=== PATIENT | male | born 1970 | race African-American/Black ===

== ENCOUNTER 2021-10-28 22:33 | Emergency (ER) | payer OTHER ==
[2021-10-28 22:44] VITALS: BMI 29.1
[2021-10-28] MEDS ORDERED: ACETAMINOPHEN 1000 MG/100 ML BAG IVPB ONE (23:20)
[2021-10-28] MEDS ORDERED: ACETAMINOPHEN INJECTION 100 ML IVPB ONE (23:37)
[2021-10-29 00:20] LABS: BASO % 0.2 % (0-2.0); EOS % 2.5 % (0-4.5); HEMATOCRIT 40.8 % (35.4-49); HEMOGLOBIN 14.1 GM/dL (11.7-16.9); LYMPH % 56.1 % (8-40); MCH 30.1 pg (25.7-33.7); MCHC 34.7 g/dl (32.0-35.9); MEAN CELL VOLUME 86.7 fl (80-96); MEAN PLT VOLUME 7.5 fl (7.5-11.1); MONO % 11.3 % (3.8-10.2); NEUT % 29.9 % (42.8-82.8); PLATELET COUNT 164 10^3/uL (134-434); RDW 14.6 % (11.9-15.9); WHITE BLOOD COUNT 5.1 K/mm3 (4.0-10.0)
[2021-10-29] MEDS ORDERED: POTASSIUM CHLORIDE TABS 20 MEQ TABLET.ER (FP) PO ONE ×2 (00:30→02:34)
[2021-10-29 00:31] LABS: BLOOD UREA NITROGEN 12.2 mg/dL (7-18); CALCIUM 8.9 mg/dL (8.5-10.1)
[2021-10-29 00:32] LABS: ALBUMIN 3.9 g/dl (3.4-5.0)
[2021-10-29 00:35] LABS: CREATININE 1.4 mg/dL (0.55-1.3)
[2021-10-29 00:36] LABS: BILIRUBIN,TOTAL 0.8 mg/dL (0.2-1); TOT PROT 7.1 g/dl (6.4-8.2)
[2021-10-29 02:22] VITALS: BP 139/84; PULSE 52; RESP 20; TEMP 97.8
[2021-10-29] MEDS ORDERED: METOCLOPRAMIDE HCL INJECTION 10 MG/2 ML VIAL IVPB ONE (02:28)
[2021-10-29 02:29] LABS: PH,URINE 6.5 (5.0-8.0); URINE APPEARANCE CLEAR; URINE BILIRUBIN NEGATIVE (NEGATIVE); URINE COLOR YELLOW; URINE GLUCOSE (UA) NEGATIVE (NEGATIVE); URINE KETONE TRACE (NEGATIVE); URINE LEUK ESTERASE NEGATIVE (NEGATIVE); URINE NITRITE NEGATIVE (NEGATIVE); URINE PROTEIN NEGATIVE (NEGATIVE); URINE UROBILINOGEN 0.2 mg/dL (0.2-1.0)
[2021-10-29] MEDS ORDERED: METOCLOPRAMIDE HCL INJECTION 10 MG/2 ML VIAL ONE (02:35)
== END 2021-10-29 03:23 | disposition home or self-care (01) ==
LOC: JER 22:33
PROC: 3E033NZ Introduction of Analgesics, Hypnotics, Sedatives into Peripheral Vein, Percutaneous Approach (ICD-10-PCS; principal; 2021-10-28)
DX: R51.9 Headache, unspecified (principal); E87.6 Hypokalemia
CPT/HCPCS: 36415; 70450-TC; 71046-TC-FY; 80053; 81003; 84484; 85025; 87086; 93005; 93010; 96374; 99285-25

== ENCOUNTER 2022-08-09 11:05 | Emergency (ER) | payer OTHER ==
[2022-08-09 11:16] VITALS: BP 121/84; PULSE 67; RESP 20; TEMP 97.9; BMI 30.8
[2022-08-09] MEDS ORDERED: KETOROLAC TROMETHAMINE 30 MG/1 ML VIAL IVPUSH ONE (12:16)
[2022-08-09] MEDS ORDERED: SODIUM CHLORIDE 0.9% 500 ML INFUS.BAG IV ONE (12:16)
[2022-08-09] MEDS ORDERED: LIDOCAINE 5% TOPICAL PATCH TP ONE (12:17)
[2022-08-09] MEDS ORDERED: KETOROLAC TROMETHAMINE 30 MG/1 ML VIAL ONE (12:34)
[2022-08-09] MEDS ORDERED: LIDOCAINE 5% TOPICAL PATCH ONE (12:34)
[2022-08-09 13:43] LABS: HEMATOCRIT 42.4 % (35.4-49); HEMOGLOBIN 14.7 GM/dL (11.7-16.9); MCH 30.6 pg (25.7-33.7); MCHC 34.8 g/dl (32.0-35.9); MEAN CELL VOLUME 88.1 fl (80-96); PLATELET COUNT 181 10^3/uL (134-434); RBC 4.81 M/mm3 (4.00-5.60); RDW 14.7 % (11.9-15.9); WHITE BLOOD COUNT 5.5 K/mm3 (4.0-10.0)
[2022-08-09 13:49] LABS: EPI CELLS 18 /uL (0-25.1); HYALINE CASTS 1 /uL (0-3.1); URINE APPEARANCE TURBID; URINE BACTERIA 15 /uL (0-1359); URINE BILIRUBIN NEGATIVE (NEGATIVE); URINE COLOR YELLOW; URINE GLUCOSE (UA) NEGATIVE (NEGATIVE); URINE KETONE NEGATIVE (NEGATIVE); URINE LEUK ESTERASE NEGATIVE (NEGATIVE); URINE NITRITE NEGATIVE (NEGATIVE); URINE PROTEIN NEGATIVE (NEGATIVE); URINE RBC 174 /uL (0-23.9); URINE WBC 16 /uL (0-25.8)
[2022-08-09 14:15] LABS: POTASSIUM 3.4 mmol/L (3.5-5.1)
[2022-08-09 14:17] LABS: CALCIUM 8.7 mg/dL (8.5-10.1)
[2022-08-09 14:18] LABS: ALBUMIN 3.9 g/dl (3.4-5.0); BLOOD UREA NITROGEN 12.8 mg/dL (7-18)
[2022-08-09 14:20] LABS: CREATININE 1.2 mg/dL (0.55-1.3)
[2022-08-09 14:22] LABS: BILIRUBIN,TOTAL 0.6 mg/dL (0.2-1); TOT PROT 7.4 g/dl (6.4-8.2)
[2022-08-09 14:24] LABS: ANISOCYTOSIS 0; HELMET CELLS 0; HOWELL-JOLLY BODIES 0; MACROCYTOSIS 0; OVALOCYTE 0; ROULEAU 0; SICKELED CELLS 0; TARGET CELLS 0; TEAR DROP CELLS 0; TOXIC GRANULATION 0
[2022-08-09] MEDS ORDERED: LIDOCAINE PATCH REMOVAL MC ONE (22:00)
== END 2022-08-09 16:27 | disposition home or self-care (01) ==
LOC: JER 11:05
PROC: 3E0333Z Introduction of Anti-inflammatory into Peripheral Vein, Percutaneous Approach (ICD-10-PCS; principal; 2022-08-09)
DX: R10.32 Left lower quadrant pain (principal); R31.9 Hematuria, unspecified
CPT/HCPCS: 36415; 74176-TC; 80053; 81003; 85025; 87086; 99284-25